=== PATIENT | male | born 1950 | race Hispanic/Latino ===

== ENCOUNTER → 2018-11-28 | Outpatient (CLI) | payer OTHER ==
[~2018-11-28] MED LIST: OMEP20CA10 PO
== END | disposition home or self-care (01) ==
LOC: SHCH 08:19
PROVIDERS: ATTEND Internal Medicine Cardiovascular Disease
DX: I87.2 Venous insufficiency (chronic) (peripheral) (principal)
CPT/HCPCS: 93970

== ENCOUNTER 2019-07-29 23:38 | Emergency (ER) | payer OTHER ==
[~2019-07-29 23:38] MED LIST changes: -OMEP20CA10 PO; +OMEP20CA12 PO
[2019-07-30 00:10] LABS: BASOPHILS % (AUTO) 1.1 % (0.0-5.0); EOSINOPHILS % (AUTO) 2.6 % (0.0-8.0); HEMATOCRIT 43.6 % (42-54); LYMPHOCYTES % (AUTO) 23.1 % (21.0-51.0); MEAN CORPUSCULAR HGB CONC 33.3 g/dL (32.0-36.0); MEAN CORPUSCULAR VOLUME 81.2 fL (79-99); MONOCYTES % (AUTO) 8.6 % (3.0-13.0); NEUTROPHILS % (AUTO) 64.4 % (40.0-77.0); PLATELET COUNT (AUTO) 238 K/uL (130-400); RED BLOOD CELL COUNT(AUTO) 5.37 MIL/uL (4.50-6.20); RED CELL DISTRIBUTION WIDTH 13.8 % (11.0-15.5); WHITE BLOOD COUNT (AUTO) 6.7 K/uL (4.8-10.8)
[2019-07-30 00:22] LABS: POTASSIUM 3.4 mmol/L (3.5-5.1)
[2019-07-30 00:27] LABS: ALBUMIN 4.1 g/dL (3.5-5.0); BILIRUBIN,TOTAL 0.7 mg/dL (0.2-1.0); TOTAL PROTEIN, SERUM 7.6 g/dL (6.0-8.3)
[2019-07-30 00:37] LABS: INR 0.95 (0.85-1.15); PARTIAL THROMBOPLASTIN TIME 26.2 SEC (26.3-35.5)
[2019-07-30] MEDS ORDERED: METOCLOPRAMIDE 10 MG/2 ML VIAL ONE (00:54)
[2019-07-30] MEDS ORDERED: ONDANSETRON HCL 4 MG/2 ML VIAL ONE (00:54)
[2019-07-30] MEDS ORDERED: MAG HYDROX/AL HYDROX/SIMETH ES 30 ML SUSP UDCUP ONE (00:54)
[2019-07-30] MEDS ORDERED: LIDOCAINE HCL 2% VISCOUS 15 ML UDCUP ONE (00:54)
[2019-07-30] MEDS ORDERED: FAMOTIDINE 20MG TAB 20 MG TAB ONE (00:55)
[2019-07-30 01:23] LABS: APPEARANCE,URINE Clear (CLEAR); BILIRUBIN,URINE Negative (NEGATIVE); COLOR,URINE Yellow (YELLOW); GLUCOSE, URINE (UA) Negative (NEGATIVE); KETONES,URINE Negative (NEGATIVE); LEUKOCYTE ESTERASE ,URINE Negative (NEGATIVE); NITRATE,URINE Negative (NEGATIVE); OCCULT BLOOD,URINE Negative (NEGATIVE); PH,URINE 6.5 (5.0-8.0); PROTEIN,URINE Negative (NEGATIVE); UROBILINOGEN,URINE 0.2 mg/dL (0.2-1.0)
== END 2019-07-30 02:23 | disposition home or self-care (01) ==
LOC: EDH 23:38
DX: R10.13 Epigastric pain (principal); R06.00 Dyspnea, unspecified; Z91.018 Allergy to other foods
CPT/HCPCS: 36415; 71045; 80053; 81003; 82550; 83690; 84484; 85025; 85610; 85730; 93005; 96374; 96375; 99285; J2405; J2765

== ENCOUNTER 2019-12-04 19:52 | Inpatient (IN) | payer OTHER ==
[~2019-12-04] VITALS: Ht 165.1 cm; Wt 62.4 kg
[2019-12-04] MEDS ORDERED: ONDANSETRON HCL 4 MG/2 ML VIAL ONE ×2 (20:19→21:10)
[2019-12-04] MEDS ORDERED: ASPIRIN 325 MG TABLET ONE (20:20)
[2019-12-04] MEDS ORDERED: MORPHINE SULFATE 4 MG/1ML SYG ONE (20:20)
[2019-12-04] MEDS ORDERED: HYDROMORPHONE 1 MG/1 ML AMP IVP PRN (23:45)
[2019-12-04] MEDS ORDERED: ONDANSETRON HCL 4 MG/2 ML VIAL IVP PRN (23:45)
[2019-12-05] VITALS (8 sets, daily range): BP systolic 94–116; BP diastolic 58–76; PULSE 65–94; RESP 16–20; TEMP 98.2–100.1
[2019-12-05] MEDS: ZOSYN 3.375GM+NS 50ML 50 ML IV SCH ×3 (09:00→21:00)
[2019-12-05] MEDS: SODIUM CHLORIDE 0.9% 1000ML 1,000 ML IV SCH (09:04)
[2019-12-05] MEDS: PANTOPRAZOLE 40 MG/VIAL IVP SCH (09:16)
[2019-12-06] VITALS (7 sets, daily range): BP systolic 74–122; BP diastolic 67–79; PULSE 81–102; RESP 17–20; TEMP 97.8–101.8
[2019-12-06] MEDS: ZOSYN 3.375GM+NS 50ML 50 ML IV SCH ×2 (08:22→21:33)
[2019-12-06] MEDS: PANTOPRAZOLE 40 MG/VIAL IVP SCH (08:54)
--- NOTE | 2019-12-06 09:00 | NUR ---
MET W PATIENT AT BEDSIDE FOR DC PLANNING- ACTIVE, [employer], NO DME, LIVES W SPOUSE WHO WILL PROVIDE TRANSPORT. PENDING POSSIBLE LAP MARCIA ON THIS ADMIT, NO DC NEEDS EXPECTED Addendum: 12/06/19 at 1724 by AIDA TERRAZAS RN CM Amended: Links added.
--- NOTE | 2019-12-06 09:55 | NUR ---
SURGEON CONSULT SPOKE TO DR. LOVETT REGARDING CONSULT FOR CHOLECYSTITIS. PER DR. LOVETT, CONSULT GI FOR POSSIBLE ERCP. DR. MCGEE LEATHER SOFTENER FOR CONSULTS.
--- NOTE | 2019-12-06 10:35 | NUR ---
GI CONSULT SPOKE TO DR. MCGEE REGARDING CONSULT FOR POSSIBLE ERCP. PER DR. MCGEE, PATIENT HAS INFLAMMATION TO GALLBLADDER AND PANCREAS. NO NEED FOR ERCP AT THIS TIME, RECOMMENDS LAP CHOLECYSTECTOMY. DR. MCGEE STATED WILL CONTACT DR. LOVETT AND DISCUSS THE CASE. PATIENT STABLE AT THIS TIME.
--- NOTE | 2019-12-06 14:40 | NUR ---
1231 patient signed IM Letter, I faxed IM Letter to [phone] and placed in chart under consent tab.
--- NOTE | 2019-12-06 16:13 | NUR ---
NOTE PER DR. LOVETT, HAS NOT HEARD FROM DR. MCGEE TODAY REGARDING MRCP RESULTS. PATIENT HAS PANCREATITIS AND WILL NEED TO REMAIN NPO AND CONTINUE WITH IV ANTIBIOTICS FOR NOW.
[2019-12-07 00:01] VITALS: BP 123/81; PULSE 85; RESP 18; TEMP 100.8
[2019-12-07] MEDS: ACETAMINOPHEN 325 MG TAB PO PRN (01:47)
[2019-12-07] MEDS ORDERED: ACETAMINOPHEN 325 MG TAB PO PRN (02:15)
[2019-12-07] MEDS: SODIUM CHLORIDE 0.9% 1000ML 1,000 ML IV SCH (03:10)
[2019-12-07 03:31] VITALS: BP 104/66; PULSE 76; RESP 18; TEMP 97.7
[2019-12-07 08:00] VITALS: BP 112/74; PULSE 74; RESP 18; TEMP 98.5
[2019-12-07] MEDS ORDERED: ASPIRIN 81 MG EC TAB PO SCH (09:00)
[2019-12-07] MEDS ORDERED: TICAGRELOR 90 MG TABLET PO SCH (09:00)
[2019-12-07] MEDS: PANTOPRAZOLE 40 MG/VIAL IVP SCH (09:20)
[2019-12-07] MEDS: ZOSYN 3.375GM+NS 50ML 50 ML IV SCH ×2 (09:20→20:59)
[2019-12-07] MEDS: METOPROLOL SUCCINATE 50 MG TAB.SR.24H PO SCH (09:21)
[2019-12-07 12:00] VITALS: BP 126/81; PULSE 80; RESP 18; TEMP 99.1
[2019-12-07 16:00] VITALS: BP 113/80; PULSE 70; RESP 18; TEMP 97.7
[2019-12-07 20:00] VITALS: BP_SYST 116; BP_SYST 126; BP_DIAS 77; BP_DIAS 79; PULSE 74; PULSE 99; RESP 16; RESP 18; TEMP 98.2; TEMP 98.3
[2019-12-07] MEDS: ATORVASTATIN CALCIUM 20 MG TABLET PO SCH (20:59)
[2019-12-08] VITALS: BP 125/66; PULSE 73; RESP 16; TEMP 98.3
[2019-12-08] MEDS: SODIUM CHLORIDE 0.9% 1000ML 1,000 ML IV SCH ×2 (00:31→16:30)
[2019-12-08 04:00] VITALS: BP 100/71; PULSE 65; RESP 16; TEMP 97.4
[2019-12-08 08:00] VITALS: BP 128/65; PULSE 83; RESP 18; TEMP 97.6
[2019-12-08] MEDS: PANTOPRAZOLE 40 MG/VIAL IVP SCH (10:02)
[2019-12-08] MEDS: METOPROLOL SUCCINATE 50 MG TAB.SR.24H PO SCH (10:03)
[2019-12-08] MEDS: ZOSYN 3.375GM+NS 50ML 50 ML IV SCH ×2 (10:03→20:20)
[2019-12-08 11:57] VITALS: BP 118/72; PULSE 65; RESP 17; TEMP 97.4
[2019-12-08 16:00] VITALS: BP 120/70; PULSE 73; RESP 18; TEMP 97.5
[2019-12-08 20:00] VITALS: BP 108/74; PULSE 74; RESP 18; TEMP 97.7
[2019-12-08] MEDS: ATORVASTATIN CALCIUM 20 MG TABLET PO SCH (20:20)
[2019-12-09] VITALS: BP 117/77; PULSE 63; RESP 18; TEMP 97.7
[2019-12-09] MEDS: SODIUM CHLORIDE 0.9% 1000ML 1,000 ML IV SCH ×4 (02:26→20:59)
[2019-12-09] MEDS: ACETAMINOPHEN 325 MG TAB PO PRN (02:27)
[2019-12-09 04:00] VITALS: BP 114/76; PULSE 60; RESP 16; TEMP 96.7
[2019-12-09 08:00] VITALS: BP 131/78; PULSE 65; RESP 16; TEMP 97.5
[2019-12-09] MEDS: PANTOPRAZOLE 40 MG/VIAL IVP SCH (10:15)
[2019-12-09] MEDS: ZOSYN 3.375GM+NS 50ML 50 ML IV SCH ×2 (10:16→20:55)
[2019-12-09] MEDS: METOPROLOL SUCCINATE 50 MG TAB.SR.24H PO SCH (10:26)
[2019-12-09 12:00] VITALS: BP 114/77; PULSE 67; RESP 16; TEMP 97.4
[2019-12-09 16:00] VITALS: BP 129/79; PULSE 67; RESP 18; TEMP 97.1
[2019-12-09 19:30] VITALS: BP 122/72; PULSE 65; RESP 18; TEMP 98.7
[2019-12-09] MEDS: ATORVASTATIN CALCIUM 20 MG TABLET PO SCH (20:57)
[2019-12-10] VITALS: BP 117/78; PULSE 64; RESP 18; TEMP 98
[2019-12-10] MEDS: HYDROCODONE/ACETAMINOPHEN 5/325 MG TAB PO PRN ×2 (01:31→21:47)
[2019-12-10 03:54] VITALS: BP 106/70; PULSE 58; RESP 18; TEMP 97.5
[2019-12-10] MEDS: SODIUM CHLORIDE 0.9% 1000ML 1,000 ML IV SCH ×2 (07:04→18:36)
[2019-12-10 08:00] VITALS: BP 123/76; PULSE 61; RESP 16; TEMP 97.7
[2019-12-10] MEDS: PANTOPRAZOLE SODIUM 40 MG TABLET.DR PO SCH (08:54)
[2019-12-10] MEDS: METOPROLOL SUCCINATE 50 MG TAB.SR.24H PO SCH (08:54)
[2019-12-10] MEDS: ZOSYN 3.375GM+NS 50ML 50 ML IV SCH ×2 (08:55→21:44)
[2019-12-10 11:48] VITALS: BP 129/69; PULSE 63; RESP 18; TEMP 97.6
[2019-12-10 16:00] VITALS: BP 105/63; PULSE 68; RESP 16; TEMP 97.6
--- NOTE | 2019-12-10 19:00 | NUR ---
CHART REVIEWED, PATIENT PREVIOUSLY ACTIVE/INDPENDENT, EXPECTING GOOD RECOVERY AFTER INTERVENTION AND DISPO TO HOME WITHOUT SERVICES, DISPO WILL BE AMENDED WITH MD RECOMMENDS OTHERWISE. Addendum: 12/10/19 at 1901 by AIDA TERRAZAS RN CM Amended: Links added.
[2019-12-10] MEDS: ATORVASTATIN CALCIUM 20 MG TABLET PO SCH (21:44)
[2019-12-10 21:50] VITALS: BP 116/74; PULSE 62; RESP 19; TEMP 97.9
--- NOTE | 2019-12-10 23:39 | NUR ---
I paged Dr. Walls via answering service due to patient insisting he was scheduled for surgery tomorrow. Also noted the progress note for STORAGE ADMINISTRATOR that patient would be going to surgery. returned call within a few minutes, I asked if patient was to be schedule for surgery tomorrow. She stated no Lipase still over 1000. Patient made aware, verbalized understanding.
[2019-12-11] VITALS (7 sets, daily range): BP systolic 102–125; BP diastolic 66–80; PULSE 53–73; RESP 18–20; TEMP 97.3–98.7
[2019-12-11] MEDS: SODIUM CHLORIDE 0.9% 1000ML 1,000 ML IV SCH ×2 (01:23→19:07)
[2019-12-11] MEDS: PANTOPRAZOLE SODIUM 40 MG TABLET.DR PO SCH (06:41)
[2019-12-11] MEDS: METOPROLOL SUCCINATE 50 MG TAB.SR.24H PO SCH (09:50)
[2019-12-11] MEDS: ZOSYN 3.375GM+NS 50ML 50 ML IV SCH ×2 (09:50→22:14)
[2019-12-11] MEDS: ATORVASTATIN CALCIUM 20 MG TABLET PO SCH (22:15)
[2019-12-11] MEDS: HYDROCODONE/ACETAMINOPHEN 5/325 MG TAB PO PRN (22:18)
[2019-12-12] VITALS (26 sets, daily range): BP systolic 97–177; BP diastolic 59–80; PULSE 52–71; RESP 13–18; TEMP 97.3–97.9
[2019-12-12] MEDS: SODIUM CHLORIDE 0.9% 1000ML 1,000 ML IV SCH ×4 (00:30→20:30)
[2019-12-12] MEDS: PANTOPRAZOLE SODIUM 40 MG TABLET.DR PO SCH (06:10)
[2019-12-12] MEDS: METOPROLOL SUCCINATE 50 MG TAB.SR.24H PO SCH (10:56)
[2019-12-12] MEDS: ZOSYN 3.375GM+NS 50ML 50 ML IV SCH ×2 (10:59→20:33)
--- NOTE | 2019-12-12 12:47 | NUR ---
POTENTIAL FOR INFECTION: SHAVED WITH CLIPPER ENTIRE ABDOMEN PER IRON MIRANDA
[2019-12-12] MEDS ORDERED: LACTATED RINGERS 1000ML 1,000 ML IV ONE (12:50)
[2019-12-12] MEDS ORDERED: PROPOFOL 10 MG/ML 20ML VIAL IV ONE (14:32)
[2019-12-12] MEDS ORDERED: MIDAZOLAM HCL 1 MG/ML 2ML VIAL ONE (14:32)
[2019-12-12] MEDS ORDERED: ROCURONIUM 10MG/1ML SYR 10 MG/ML ML ONE (14:32)
[2019-12-12] MEDS ORDERED: LIDOCAINE PF 2% 5ML ABBOJECT ONE (14:32)
[2019-12-12] MEDS ORDERED: DEXAMETHASONE SOD PHOSPHATE 10MG/ML 1ML VIAL ONE (14:32)
[2019-12-12] MEDS ORDERED: ONDANSETRON HCL 4 MG/2 ML VIAL ONE (14:32)
[2019-12-12] MEDS ORDERED: FENTANYL CITRATE PF 50 MCG/1 ML 2ML VIAL ONE ×2 (14:33→15:24)
[2019-12-12] MEDS ORDERED: GLYCOPYRROLATE 1 MG/5 ML SYRINGE ONE (14:37)
[2019-12-12] MEDS ORDERED: NEOSTIGMINE 5MG/5ML SYR IV ONE (14:37)
[2019-12-12] MEDS ORDERED: BUPIVACAINE/PF 0.5% 30ML VIAL ONE (14:53)
[2019-12-12] MEDS ORDERED: EPHEDRINE SULFATE 50 MG/ML AMPULE ONE (14:54)
--- NOTE | 2019-12-12 15:29 | NUR ---
RDSCREEN - LOS X 8 Pt admitted with Intractable abdominal pain. Pt with Pancreatitis, suspected cholecystitis as per EMR. Pt NPO at time of screen, pending Lab Yas. Elevated LFT's/Lipase. Recommend advance diet as tolerated to Heart Healthy, when medically feasible. RD to continue to monitor. Please notify RD as additional nutrition concerns arise. Thank you. Addendum: 12/12/19 at [address] Amended: Links added.
--- NOTE | 2019-12-12 16:40 | NUR ---
RECEIVED PT FROM HANNAH MEDRANO. PT POST LAP-MARCIA. PT HAS 4 SMALL DRESSINGS INTACT WITH SCANT AMOUNT OF SEROSANGUINEOUS DRAINAGE. PT STATES SLIGHT DISCOMFORT, BUT IN NO APPARENT DISTRESS. VITAL SIGNS STABLE. WILL CONTINUE TO MONITOR PT.
[2019-12-12] MEDS: HYDROCODONE/ACETAMINOPHEN 5/325 MG TAB PO PRN (18:47)
[2019-12-12] MEDS ORDERED: ACETAMINOPHEN-CODEINE 300/30MG TAB PO PRN (19:00)
[2019-12-12] MEDS ORDERED: MORPHINE SULFATE 4 MG/1ML SYG IV PRN (19:00)
[2019-12-12] MEDS: ATORVASTATIN CALCIUM 20 MG TABLET PO SCH (20:33)
[2019-12-13 00:29] VITALS: BP 115/82; PULSE 61; RESP 18; TEMP 97.8
[2019-12-13 03:58] VITALS: BP 111/73; PULSE 63; RESP 18; TEMP 97.8
[2019-12-13] MEDS: SODIUM CHLORIDE 0.9% 1000ML 1,000 ML IV SCH ×2 (06:30→16:30)
[2019-12-13] MEDS: PANTOPRAZOLE SODIUM 40 MG TABLET.DR PO SCH (06:53)
[2019-12-13 09:20] VITALS: BP 131/79; PULSE 86; RESP 19; TEMP 98.2
[2019-12-13 09:23] VITALS: BP 124/78; PULSE 61; RESP 19; TEMP 97.4
[2019-12-13] MEDS: METOPROLOL SUCCINATE 50 MG TAB.SR.24H PO SCH (10:27)
[2019-12-13] MEDS: ZOSYN 3.375GM+NS 50ML 50 ML IV SCH (10:27)
[2019-12-13 12:45] VITALS: BP 131/84; PULSE 68; RESP 20; TEMP 97.7
[2019-12-13 16:00] VITALS: BP 131/77; PULSE 54; RESP 20; TEMP 97.6
--- NOTE | 2019-12-13 18:45 | NUR ---
NOTE DISCHARGE INSTRUCTIONS GIVEN TO PATIENT. VERBALIZED UNDERSTANDING. HE WAS GIVEN REGULAR DINNER AND TOLERATED WITH SOME DISCOMFORT HE BELIEVES FROM SPICES IN THE FOOD. MEDICATED PRN PAIN AND HE IS READY TO LEAVE. JUST WAITING ON TRANSPORT HOME.
== END 2019-12-13 19:08 | disposition home or self-care (01) | DRG 417 ==
LOC: EDH 19:52 → OBSVTOIN 23:05 → EDHIP 23:05 → 3AH 23:44
PROVIDERS: ADMIT Internal Medicine; ATTEND Internal Medicine
PROC: 0FT44ZZ Resection of Gallbladder, Percutaneous Endoscopic Approach (ICD-10-PCS; principal; 2019-12-12 14:45)
DX: K81.0 Acute cholecystitis (principal); K85.90 Acute pancreatitis without necrosis or infection, unspecified; I25.10 Atherosclerotic heart disease of native coronary artery without angina pectoris; R74.8 Abnormal levels of other serum enzymes; I10 Essential (primary) hypertension; E78.5 Hyperlipidemia, unspecified; E80.6 Other disorders of bilirubin metabolism; R74.0 Nonspecific elevation of levels of transaminase and lactic acid dehydrogenase [LDH]; Z79.899 Other long term (current) drug therapy; Z95.5 Presence of coronary angioplasty implant and graft; I25.2 Old myocardial infarction; Z79.02 Long term (current) use of antithrombotics/antiplatelets; Z79.82 Long term (current) use of aspirin

== ENCOUNTER → 2023-07-20 | Outpatient (CLI) | payer OTHER ==
[~2023-07-20] MED LIST changes: +AEC81 PO; +ATOR20TA65 PO; +METO-408 PO; -OMEP20CA12 PO
== END | disposition home or self-care (01) ==
LOC: SHCH 09:49
PROVIDERS: ATTEND Internal Medicine Cardiovascular Disease
DX: I08.0 Rheumatic disorders of both mitral and aortic valves (principal); I11.9 Hypertensive heart disease without heart failure; R01.1 Cardiac murmur, unspecified
CPT/HCPCS: 93306

== ENCOUNTER 2024-06-12 18:03 | Emergency (ER) | payer OTHER ==
[~2024-06-12] VITALS: Ht 165.1 cm; Wt 74.8 kg
[2024-06-12] MEDS: acetaMINOPHEN 325 MG TAB PO ONE (18:32)
[2024-06-12] MEDS: DIPH,PERTUSS(ACELL),TET VAC/PF 0.5 ML VIAL IM ONE (18:48)
--- NOTE | 2024-06-12 18:49 | NUR ---
ICE PACK GIVEN TO PT TO HOLD TO LEFT SIDE OF FACE
--- NOTE | 2024-06-12 18:51 | HMCIMG ---
Exam Type: CT HEAD/BRAIN W/O CONTRAST Clinical Information: fall, trauma Comparison: None CT Dose Index (CTDI): 57.33 mGy Dose Length Product (DLP): 956.79 total mGy-cm Findings: This study was performed using dose reduction techniques to include automated exposure control and/or adjustment of the mA and/or kV according to patient size. The examination is unremarkable except for atrophy Atkins-white matter junction is preserved. No intra or extra axial lesions or fluid collections are seen. Specifically, atkins and white matter are normal in signal characteristics with normal caliber of ventricles and periventricular cisterns with no evidence of intra or or extra-axial hemorrhage, lacunar infarct, or major territorial infarct, mass, or other abnormality. There are no infarcts. There are no hemorrhages. Periventricular white matter locations are preserved. The orbital contents and structures of the posterior fossa are intact. Impression: Atrophy. This study was performed using dose reduction techniques to include automated exposure control and/or adjustment of the mA and/or kV according to patient size.
--- NOTE | 2024-06-12 18:52 | HMCIMG ---
CT MAXILLOFACIAL W/O CONTRAST Indication: fall, trauma Technique: Multiple thin section axial images were performed through the face and paranasal sinuses. Coronal reconstructions were performed in soft tissue and bone windows, as well as sagittal reconstructions. CT Dose Index (CTDI): 22.11 mGy Dose Length Product (DLP): 450.8 total mGy Findings: Paranasal sinuses are unremarkable. There is no evidence of facial fracture. Visualized soft tissues are unremarkable. Visualized intracranial contents are unremarkable. Impression: No acute abnormality of the face. This study was performed using dose reduction techniques to include automated exposure control and/or adjustment of the mA and/or kV according to patient size.
--- NOTE | 2024-06-12 19:01 | HMCIMG ---
Exam Type: HAND 3+VWS LT Clinical Information: fall, trauma Comparison: None Findings and impression: No fractures. Possible: Mild subluxations of the second and third metacarpophalangeal joints. Mild degenerative changes of the interphalangeal joints.
--- NOTE | 2024-06-12 20:16 | ERN ---
ED Note History of Present Illness Stated Complaint: FALL Chief Complaint: Mechanical Fall Time Seen by MD: 18:10 Time Seen by Midlevel: 18:10 Dictation: The patient is a 74-year-old male with a history of CAD who presents to the emergency department with complaints of fall onset prior to arrival. Patient reports he was helping her who was about to fall causing him to fall forward hitting his head. Patient denies any LOC, nausea or vomiting, use of blood thinners. Patient reports injury to the face, left hand. Denies any neck pain, chest pain, back pain, hip pain, knee pain or extremity pain no other injuries reported. Unknown last Tdap Allergies: Coded Allergies: No Known Drug Allergies (Verified Allergy, Unknown, 08/01/14) Home Meds Reported Medications Metoprolol Succinate (Metoprolol Succinate) 25 Mg Tab.er.24h, 25 MG PO DAILY, TAB 12/07/19 Aspirin (ASPIRIN 81 MG ECTAB) 81 Mg Ectab, 81 MG PO DAILY, TAB.EC 12/07/19 Atorvastatin Calcium (Atorvastatin Calcium) 20 Mg Tablet, 20 MG PO HS, TAB 12/07/19 Past Medical History Past Medical History: Heart Disease, Hypertension Surgical History: None RN Note Reviewed/Agreed w/PFSH: Yes Review of System Dictation Constitutional: Negative for fever,chills, and weight loss Eyes: Negative for injury, pain,redness, and discharge ENT: Negative for injury,pain or swelling Cardiovascular: Negative for chest pain, palpitations, and edema Respiratory: Negative for shortness of breath, cough, and wheezing, Abdomen/GI: Negative for abdominal pain, nausea, vomiting, diarrhea, and constipation Back: Negative for injury and pain : Negative for injury, bleeding and discharge MS/Extremity: Negative for injury and deformity Skin: Negative for rash, and discoloration positive for laceration to inner upper lip, left hand, lives cheek Neuro: Negative for headache, weakness, numbness, tingling, and seizure Psych: Negative for suicide ideation, homicidal ideation, and hallucinations Initial Vital Sign VS Vital Signs Date Time Temp Pulse Resp B/P (MAP) Pulse Ox O2 Delivery O2 Flow Rate FiO2 06/12/24 18:04 98.4 73 18 166/79 97 Physical Exam Dictation Vital Signs reviewed General Appearance: Alert, oriented x 3, no acute distress, well developed, nourished. Head and Face: Bruising noted to left upper cheek, swelling, small less than 0.5 cm skin tear, minimal bleeding Eyes: PERRL, pink conjunctivas, eyelid no trauma, anterior chamber with arcus senilis. Ears: Pinnas intact and no signs of trauma or erythema ear canals clear and no discharge TM no erythema Nose: No discharge, no bleeding. Oropharynx: Mouth normal, tongue pink. Laceration to inner upper lip, no active bleeding. pharynx clear,no erythema, tonsils no exudates, no abscesses noted, mucous membrane moist Neck: Supple, non-tender, no thyromegaly, no masses, no JVD, no bruits Breast:Deferred Chest:No tenderness, no crepitus, no paradoxical movement, no retractions Lungs:Clear, well-ventilated, symmetric, no rales, no wheezing, no rhonchi, no stridor, good breath sounds bilaterally Heart: Regular rate, regular rhythm, no murmur, no gallops Vascular: no peripheral edema, Abdomen: Soft, positive bowel sounds, nondistended, no guarding, nontender, no rebound, no masses no hepatomegaly, no splenomegaly, no Shin's sign, no hernias. Rectal: Deferred Genital: Deferred Neurological: Normal speech, motor function intact, sensory function intact Musculoskeletal: Neck nontender, full range of motion, back nontender, full range of motion, Extremities: nontender, full range of motion Skin: Color pink, dry, no turgor, no rash, no lacerations, no abrasions, no contusions. Smoking tear to left posterior hand, no active bleeding Lymphatic: Deferred Results (Laboratory/Radiology) Laboratory/Radiology REASON: fall, trauma ORDERING PHYSICIAN: LIANET SAUNDERS PROCEDURE: Sunible WO - CT MAXILLOFACIAL W/O CONTRAST CT MAXILLOFACIAL W/O CONTRAST Indication: fall, trauma Technique: Multiple thin section axial images were performed through the face and paranasal sinuses. Coronal reconstructions were performed in soft tissue and bone windows, as well as sagittal reconstructions. CT Dose Index (CTDI): 22.11 mGy Dose Length Product (DLP): 450.8 total mGy Findings: Paranasal sinuses are unremarkable. There is no evidence of facial fracture. Visualized soft tissues are unremarkable. Visualized intracranial contents are unremarkable. Impression: No acute abnormality of the face. This study was performed using dose reduction techniques to include automated exposure control and/or adjustment of the mA and/or kV according to patient size. REASON: fall, trauma ORDERING PHYSICIAN: LIANET SAUNDERS AQUACULTURIST PROCEDURE: HEAD WO - CT HEAD/BRAIN W/O CONTRAST Exam Type: CT HEAD/BRAIN W/O CONTRAST Clinical Information: fall, trauma Comparison: None CT Dose Index (CTDI): 57.33 mGy Dose Length Product (DLP): 956.79 total mGy-cm Findings: This study was performed using dose reduction techniques to include automated exposure control and/or adjustment of the mA and/or kV according to patient size. The examination is unremarkable except for atrophy Atkins-white matter junction is preserved. No intra or extra axial lesions or fluid collections are seen. Specifically, atkins and white matter are normal in signal characteristics with normal caliber of ventricles and periventricular cisterns with no evidence of intra or or extra-axial hemorrhage, lacunar infarct, or major territorial infarct, mass, or other abnormality. There are no infarcts. There are no hemorrhages. Periventricular white matter locations are preserved. The orbital contents and structures of the posterior fossa are intact. Impression: Atrophy. This study was performed using dose reduction techniques to include automated exposure control and/or adjustment of the mA and/or kV according to patient size. REASON: fall, trauma ORDERING PHYSICIAN: LIANET SAUNDERS AQUACULTURIST PROCEDURE: HAND 3V LT - HAND 3+VWS LT Exam Type: HAND 3+VWS LT Clinical Information: fall, trauma Comparison: None Findings and impression: No fractures. Possible: Mild subluxations of the second and third metacarpophalangeal joints. Mild degenerative changes of the interphalangeal joints. Labs Reviewed?: Yes ED Course ED Course Orders Procedure Category Date Status Time Ct Maxillofacial W/O CT 06/12/24 Resulted Contrast 18:21 Ct Head/Brain W/O CT 06/12/24 Resulted Contrast 18:21 Hand 3+Vws Lt RAD 06/12/24 Resulted 18:21 Diph,Pertuss(Acell),Tet PHA 06/12/24 Complete Vac/Pf (Tdap) 18:30 Acetaminophen 325 Tab PHA 06/12/24 Complete (Tylenol 325mg Tab 18:30 Wound Care (Er) CPOE 06/12/24 Transmitted 18:21 Current Medications Medications (Trade) Dose Ordered Sig/John Route PRN Reason Start Time Stop Time Status Last Admin Dose Admin Acetaminophen (TYLenol 325MG TAB) 650 mg ONCE ONCE PO 06/12/24 18:30 06/12/24 18:31 DC 06/12/24 18:32 Diphtheria/ Tetanus/Acell Pertussis (Tdap) 0.5 ml ONCE ONCE IM 06/12/24 18:30 06/12/24 18:31 DC 06/12/24 18:48 Vital Signs Date Time Temp Pulse Resp B/P (MAP) Pulse Ox O2 Delivery O2 Flow Rate FiO2 06/12/24 18:04 98.4 73 18 166/79 97 Medical Decision Making MDM The patient is a 74-year-old male with a history of CAD who presents to the emergency department with complaints of fall onset prior to arrival. Patient reports he was helping her who was about to fall causing him to fall forward hitting his head. Patient denies any LOC, nausea or vomiting, use of blood thinners. Patient reports injury to the face, left hand. Denies any neck pain, chest pain, back pain, hip pain, knee pain or extremity pain no other injuries reported. Unknown last Tdap CT head showed no acute intracranial bleeding, atrophy, CT maxillofacial showed no acute abnormality, hand x-ray showed no fractures. Patient continues neurologically intact. Skin tear to hand and left-sided cheek, wounds cleaned. No need for repair. Patient instructed to follow up with PCP. Differential diagnosis: Subdural hematoma, intracerebral hemorrhage, hand contusion, maxillofacial fracture Need for hospitalization: Patient does not meet criteria for hospitalization. There are no social concerns with this patient. DX & DISP Disposition: Discharge Departure Impression: Primary Impression: Fall Additional Impressions: Facial contusion, Contusion of left hand Condition: Stable Additional Instructions: Please keep wounds clean and dry. You may apply Neosporin. If symptoms infection like redness, fevers, abnormal discharge develop please follow up with your primary doctor. FOLLOW-UP WITH PRIMARY CARE PROVIDER IN 1 TO 2 DAYS. TAKE MEDICATIONS DIRECTED HERE IN THE EMERGENCY ROOM. OKAY TO CONTINUE HOME MEDICATIONS UNLESS OTHERWISE DISCUSSED DURING YOUR VISIT IN THE EMERGENCY ROOM TODAY. RETURN TO YOUR NEAREST EMERGENCY ROOM IF SYMPTOMS WORSEN OR IF THERE IS NO IMPROVEMENT. CALL 911 IF YOU NEED IMMEDIATE ASSISTANCE. TAKE TYLENOL OR MOTRIN [id number] NEEDED AND IF NO CONTRAINDICATIONS ARE PRESENT. INCREASE ORAL HYDRATION. A WOUND CULTURE OR URINE CULTURE WAS ORDERED HERE IN THE EMERGENCY ROOM DEPARTMENT PLEASE FOLLOW-UP WITH PRIMARY CARE PROVIDER AND ADVISE THEM TO GET REPEAT PORTS FROM OUR FACILITY. IF YOU HAD ANY PALMER WRAP/SPLINTS THAT WERE APPLIED HERE, PLEASE DO NOT REMOVE THEM UNTIL YOU SEE YOUR PRIMARY CARE OR SPECIALTY. Referrals: ALVINA SAUL MD (PCP) Time of Disposition: 20:14 I have reviewed the case, and I agree with, Diagnosis and Plan LIANET SAUNDERS AQUACULTURIST Jun 12, 2024 20:16
[2024-06-12] MEDS: NEOMY SULF/BACITRA/POLYMYXIN B 1 EACH PACKET TP ONE (20:34)
[2024-06-12 20:35] VITALS: BP 144/79; PULSE 78; RESP 18; TEMP 98.6; O2SAT 97
== END 2024-06-12 20:36 | disposition home or self-care (01) ==
LOC: EDH 18:03
DX: S01.412A Laceration without foreign body of left cheek and temporomandibular area, initial encounter (principal); S61.412A Laceration without foreign body of left hand, initial encounter; I10 Essential (primary) hypertension; Z79.82 Long term (current) use of aspirin; Z79.899 Other long term (current) drug therapy; W18.39XA Other fall on same level, initial encounter; Y93.89 Activity, other specified; Y92.89 Other specified places as the place of occurrence of the external cause; Y99.8 Other external cause status
CPT/HCPCS: 70450; 70486; 73130; 90471; 90715; 99285

== ENCOUNTER → 2024-07-23 | Outpatient (CLI) | payer OTHER ==
--- NOTE | 2024-07-23 11:58 | HMCSR ---
APPROVED REPORT EXAM: Two-dimensional and M-mode echocardiogram with Doppler and color Doppler. With STRAIN INDICATION ICD: Non-rheumatic aortic valve stenosis I35.0 RISK FACTORS Hypertension Hyperlipidemia 2D Dimensions RVDd3.8 cmLVEF(%)54.0 (>50%)LVED Vol(simp.)105.0 mL IVSd0.8 (0.7-1.1cm)FS(%)28 %LVES Vol(simp.)45.0 mL LVDd5.1 (3.8-5.6cm)LA (2D)3.7 (1.6-4.0cm)LVEF(%, simp.)57 % PWd0.7 (0.7-1.1cm)Ao Root(2D)3.7 (2.0-3.7cm)LA ESV INDEX (BP)20.68 mL/m2 LVDs3.7 (2.5-4.0cm)LVOT diam2.0 (1.8-2.4cm) IVC diam1.2 cm Deformation Strain Apical 4-17.2 % Apical 2-17.6 % Apical 3-17.1 % Global Strain-17.3 % Aortic Valve AoV Vmax3.7 m/Jeevan Peak GR54.0 mmHgLVOT Vmax0.9 m/s AoV VTI0.9 mAo Mean GR29.9 mmHgLVOT VTI0.21 m HERMILA (VMAX)0.7 cm2Al P1/2T919 msAVA (VTI) 0.7 cm2 Mitral Valve MV E Vmax64.6 cm/sDECEL Oidx325 ms MV A Vmax84.6 cm/s E/A ratio0.8 MR Max PG84 mmHg TDI E/E' Dkppae17.3E/E' Anfmwet22.1 Pulmonary Valve PV Vmax0.9 m/sPV VTI0.19 mPV Mean GR2 mmHg PV Peak GR3.0 mmHgPI End Alma Rosa. Tushar 0.9 cm/s Tricuspid Valve TR Vmax2.5 m/sRAP (EST) 3 fqWsRLWU75.8 mmHg TR Peak GR24.8 mmHg Left Ventricle Left ventricular cavity size is normal. There is normal LV segmental wall motion. There is normal lef t ventricular wall thickness. LVEF is >55%. GLS rate -17.3% Stage I diastolic dysfunction. Right Ventricle The right ventricle is normal size. The right ventricular systolic function is normal. Atria The left atrium size is normal. The right atrium size is normal. Aortic Valve Aortic valve is trileaflet. The aortic valve is calcified and displays decreased opening. Mild to mod erate aortic regurgitation. AV Dimensionless Index is 0.22 Calculated aortic valve area is 0.7 cm2 wi th maximum pressure gradient of 54 mmHg and mean pressure gradient of 29.9 mmHg. Mitral Valve Mitral valve leaflets are mildly sclerotic but opens well. Mitral annular calcification is mild. Mitr al regurgitation is trace. There is no mitral valve stenosis. Tricuspid Valve The tricuspid valve leaflets appear normal. There is mild tricuspid regurgitation. Pulmonic Valve The pulmonic valve leaflets are thin and pliable; valve motion is normal. There is mild valvular regu rgitation. Great Vessels The aortic root is borderline enlarged. IVC is normal in size and collapses >50% with inspiration. Pericardium No pericardial effusion. Conclusion There is normal LV segmental wall motion. LVEF is >55%. GLS rate -17.3% Stage I diastolic dysfunction. Mild to moderate aortic regurgitation. Calculated aortic valve area is 0.7 cm2 with maximum pressure gradient of 54 mmHg and mean pressure g radient of 29.9 mmHg. Mitral valve leaflets are mildly sclerotic but opens well. Mitral annular calcification is mild. There is mild tricuspid regurgitation. There is mild valvular regurgitation.
== END | disposition home or self-care (01) ==
LOC: SHCH 10:11
PROVIDERS: ATTEND Internal Medicine Cardiovascular Disease
DX: I08.8 Other rheumatic multiple valve diseases (principal); I35.0 Nonrheumatic aortic (valve) stenosis
CPT/HCPCS: 93306; 93356